=== PATIENT | female | born 1970 | race Caucasian/White ===

== ENCOUNTER 2024-07-27 09:22 | Day surgery (SDC) | payer OTHER ==
[~2024-07-27] VITALS: Ht 152.4 cm; Wt 75.7 kg
[2024-07-27 10:03] LABS: BASOPHILS # (AUTO) 0.1 K/uL (0.00-0.22); BASOPHILS % (AUTO) 1.4 % (0.0-2.0); EOSINOPHILS # (AUTO) 0.2 K/uL (0-0.4); EOSINOPHILS % (AUTO) 2.8 % (0.0-4.0); HEMATOCRIT 37.5 % (36-48); HEMOGLOBIN 12.8 g/dL (12.0-16.0); LYMPHOCYTES # (AUTO) 2.3 K/uL (2.5-16.5); LYMPHOCYTES % (AUTO) 33.3 % (20.5-51.1); MEAN CORPUSCULAR HEMOGLOBIN 29 pg (27-31); MEAN CORPUSCULAR HGB CONC 34 g/dL (33-37); MEAN CORPUSCULAR VOLUME 85.5 fL (80-94); MONOCYTES # (AUTO) 0.5 K/uL (0.8-1.0); NEUTROPHILS # (AUTO) 3.7 K/uL (1.8-7.7); NEUTROPHILS % (AUTO) 54.5 % (42.2-75.2); PLATELET COUNT (AUTO) 245 K/uL (140-450); RED BLOOD CELL COUNT(AUTO) 4.39 MIL/uL (4.20-5.40); RED CELL DISTRIBUTION WIDTH 13.5 % (11.6-13.7); WHITE BLOOD COUNT (AUTO) 6.8 K/uL (4.8-10.8)
[2024-07-27 10:20] LABS: ALBUMIN 4.3 g/dL (3.4-5.0); ANION GAP 11.6 (8-16); CALCIUM 9.1 mg/dL (8.5-10.1); CARBON DIOXIDE 27.2 mmol/L (21-32); CREATININE 0.8 mg/dL (0.6-1.3); POTASSIUM 3.8 mmol/L (3.5-5.1); TOTAL BILIRUBIN 0.5 mg/dL (0.0-1.0); TOTAL PROTEIN, SERUM 7.7 g/dL (6.4-8.2)
[2024-07-27] MEDS ORDERED: fentaNYL citrate 0.05 MG/ML VIAL ONE (10:54)
[2024-07-27] MEDS ORDERED: MIDAZOLAM 2 MG/2 ML VIAL ONE (10:55)
[2024-07-27] MEDS ORDERED: ceFAZolin 2,000 MG VIAL ONE (11:24)
[2024-07-27] MEDS ORDERED: SEVOFLURANE 250 ML BTL INH ONE (11:30)
[2024-07-27] MEDS ORDERED: PROPOFOL 200 MG/20 ML VIAL IV ONE (11:30)
[2024-07-27] MEDS ORDERED: ONDANSETRON 4 MG/2 ML VIAL ONE ×2 (11:42→12:34)
[2024-07-27] MEDS ORDERED: KETOROLAC 30 MG/ML VIAL ONE (11:43)
[2024-07-27] MEDS: LIDOCAINE 1% 500 MG/50 ML VIAL ONE (12:40)
[2024-07-27] MEDS: BUPIVACAINE-MPF 0.25% 30 ML VIAL INJ ONE (12:40)
[2024-07-27] MEDS: HYDROmorphone 1 MG/ML AMP IVP PRN (13:00)
[2024-07-27] MEDS ORDERED: HYDROmorphone PFS 2 MG/ML SYR ONE (13:02)
[2024-07-27] MEDS ORDERED: BLOOD GLUCOSE MONITORING 1 DEV DEV FS SCH (13:05)
[2024-07-27] MEDS: MEPERIDINE 25 MG/ML SYR IVP PRN (13:05)
[2024-07-27] MEDS ORDERED: ONDANSETRON 4 MG/2 ML VIAL IVP PRN (13:05)
[2024-07-27] MEDS ORDERED: diphenhydrAMINE 50 MG/ML VIAL IVP PRN (13:05)
[2024-07-27] MEDS ORDERED: MEPERIDINE 25 MG/ML SYR ONE (13:09)
[2024-07-27] MEDS ORDERED: KETOROLAC 30 MG/ML VIAL IVP ONE (13:20)
== END 2024-07-27 16:05 | disposition home or self-care (01) ==
LOC: MDS 09:22 → MMU 09:25 → MDS 16:05
PROVIDERS: ATTEND Podiatrist Foot & Ankle Surgery
DX: M67.479 Ganglion, unspecified ankle and foot (principal); M79.672 Pain in left foot; M77.41 Metatarsalgia, right foot; I10 Essential (primary) hypertension; E11.9 Type 2 diabetes mellitus without complications
CPT/HCPCS: 28104; 28730; 36415; 80053; 82948; 84703; 85025; 93005; C1713; J0690; J1171; J1885; J2003; J2175; J2250; J2405; J2704; J3010; J3490; J7060